=== PATIENT | male | born 1955 | race Caucasian/White ===

== ENCOUNTER 2017-03-16 16:39 | Emergency (ER) | payer BC ==
[~2017-03-16] VITALS: Ht 182.9 cm; Wt 100.1 kg
[~2017-03-16 16:39] MED LIST: CRF1 PO; GLC/500 PO; MULT-506 PO; PANT40TA PO
[2017-03-16 16:42] VITALS: Ht 182.9 cm; Wt 100.1 kg
[2017-03-16] MEDS ORDERED: METHYLPREDNISOLONE 125 MG VIAL IV STA (17:34)
--- NOTE | 2017-03-16 17:35 | EMERGENCY ROOM VISIT NOTE ---
History Report prepared by Phillip: Joie Daily Under the Supervision of: Dr. Sae King M.D. First contact with patient: 17:25 Chief Complaint: CHEST PAIN Stated Complaint: DIFFICULTY BREATHING,CHEST PRESSURE Nursing Triage Summary: Patient with chest heaviness since yesterday and also unable to lay down without being SOB. Denies cough. History of ablation. History of Present Illness The patient is a 61 year old male who presents to the Emergency Room with complaints of worsening shortness of breath beginning yesterday. The patient states that he is having trouble breathing and is wheezing. He is also experiencing chest pressure. The patient is fatigued from his symptoms. He notes that laying down worsens his symptoms. The patient denies leg swelling, recent traveling, history of COPD or asthma, exposure to illness, cough, or being a smoker. He notes that he has one functioning lung and a history of ablation at [place] last year for atrial flutter. The patient use to be on Pradaxa but has not taken it recently. Source of History: patient Onset: yesterday Position: other (global) Quality: other (shortness of breath) Timing: worsening Associated Symptoms: + chest pain (pressure), + fatigue Note: The patient is experiencing trouble breathing. Review of Systems See HPI for pertinent positives & negatives. A total of 10 systems reviewed and were otherwise negative. Past Medical & Surgical Medical Problems: (1) Chronic low back pain Family History Patient reports no known family medical history. Social History Smoking Status: Never Smoker Smokeless Tobacco Use: No Marital Status: Housing Status: lives with family Occupation Status: employed Current/Historical Medications Scheduled Azithromycin (Zithromax Z-Raymond), 1 PKT PO UD Glipizide (Glipizide Er), 1 TAB PO DAILY Metformin Hcl (Glucophage), 500 MG PO BID Methylprednisolone (Medrol Dosepak), 1 PKT PO UD Metoprolol Tartrate (Lopressor) (Lopressor), 50 MG PO BID Scheduled PRN Lisinopril (Lisinopril), 2.5 MG PO for daily Allergies Coded Allergies: Iodinated Contrast Media (Verified Adverse Reaction, Mild, GI SYMPTOMS FROM BONE SCAN DYE, 03/16/17) Physical Exam Vital Signs Date Time Temp Pulse Resp B/P Pulse Ox O2 Delivery O2 Flow Rate FiO2 03/16/17 20:06 36.7 92 17 /78 93 5/19/17 19:50 92 17 118/78 93 03/16/17 19:20 84 15 94 03/16/17 18:23 70 03/16/17 18:17 65 16 124/77 99 Nebulizer 03/16/17 18:17 99 03/16/17 17:48 67 16 96 Room Air 03/16/17 16:44 Room Air 03/16/17 16:42 36.7 67 20 123/82 95 Room Air Physical Exam GENERAL: Patient is uncomfortable appearing and in moderate distress. HEENT: No acute trauma, normocephalic atraumatic, mucous membranes moist, no nasal congestion, no scleral icterus. NECK: No stridor, no adenopathy, no meningismus, trachea is midline. LUNGS: Dysemic and tachypneic. Tight lung sounds throughout with diffuse inspiratory and expiratory wheezing. Lung sounds decrease laterally on left side. HEART: Regular rate and rhythm. No murmurs, rubs, gallops appreciated. ABDOMEN: Soft, nontender, bowel sounds positive, no masses appreciated, no peritonitis. BACK: No midline tenderness, no CVA tenderness EXTREMITIES: Normal motion all extremities, no cyanosis, no edema. NEUROLOGIC: Alert and oriented, no acute motor or sensory deficits, no focal weakness, cranial nerves grossly intact. SKIN: No rash, no jaundice, no diaphoresis. Medical Decision & Procedures ER Provider Diagnostic Interpretation: X ray results are stated below per my interpretation and the radiologist's interpretation. CHEST ONE VIEW PORTABLE HISTORY: Atypical Chest Pain COMPARISON: None. FINDINGS: The lungs are clear. Cardiac silhouette is normal in size. No pleural effusions. No pneumothorax. Chronic elevation of the left hemidiaphragm. IMPRESSION: No acute process. Stable chronic elevation of the left hemidiaphragm. Electronically signed by: Ye Tovar M.D. 03/16/2017 6:03 PM Dictated Date/Time: 03/16/2017 6:02 PM Laboratory Results 03/16/17 17:49 Red Blood Count 4.73, Mean Corpuscular Volume 92.0, Mean Corpuscular Hemoglobin 31.9, Mean Corpuscular Hemoglobin Concent 34.7, Mean Platelet Volume 11.8, Neutrophils (%) (Auto) 42.7, Lymphocytes (%) (Auto) 37.2, Monocytes (%) (Auto) 12.6, Eosinophils (%) (Auto) 7.0, Basophils (%) (Auto) 0.3, Neutrophils # (Auto ) 2.50, Lymphocytes # (Auto) 2.18, Monocytes # (Auto) 0.74, Eosinophils # (Auto ) 0.41, Basophils # (Auto) 0.02 03/16/17 17:49 Test 03/16/17 17:49 03/16/17 18:07 03/16/17 18:08 White Blood Count 5.86 K/uL (4.8-10.8) Red Blood Count 4.73 M/uL (4.7-6.1) Hemoglobin 15.1 g/dL (14.0-18.0) Hematocrit 43.5 % (42-52) Mean Corpuscular Volume 92.0 fL (80-100) Mean Corpuscular Hemoglobin 31.9 pg (25-34) Mean Corpuscular Hemoglobin Concent 34.7 g/dl (32-36) Platelet Count 153 K/uL (130-400) Mean Platelet Volume 11.8 fL (7.4-10.4) Neutrophils (%) (Auto) 42.7 % Lymphocytes (%) (Auto) 37.2 % Monocytes (%) (Auto) 12.6 % Eosinophils (%) (Auto) 7.0 % Basophils (%) (Auto) 0.3 % Neutrophils # (Auto) 2.50 K/uL (1.4-6.5) Lymphocytes # (Auto) 2.18 K/uL (1.2-3.4) Monocytes # (Auto) 0.74 K/uL (0.11-0.59) Eosinophils # (Auto) 0.41 K/uL (0-0.5) Basophils # (Auto) 0.02 K/uL (0-0.2) RDW Standard Deviation 42.9 fL (36.4-46.3) RDW Coefficient of Variation 12.8 % (11.5-14.5) Immature Granulocyte % (Auto) 0.2 % Immature Granulocyte # (Auto) 0.01 K/uL (0.00-0.02) D-Dimer 240 ug/L FEU (0-500) Anion Gap 6.0 mmol/L (3-11) Est Creatinine Clear Calc Drug Dose 123.3 ml/min Estimated GFR () 113.9 Estimated GFR (Non- 98.3 BUN/Creatinine Ratio 25.7 (10-20) Calcium Level 9.5 mg/dl (8.5-10.1) Total Creatine Kinase 90 U/L (39-308) Creatine Kinase MB 2.4 ng/ml (0.5-3.6) Creatine Kinase MB Ratio 2.7 (0-3.0) Troponin I < 0.015 ng/ml (0-0.045) Venous Blood pH 7.44 (7.36-7.41) Venous Blood Partial Pressure CO2 38 mmHg (38.0-50.0) Venous Blood Partial Pressure O2 46 mmHg Venous Blood HCO3 25 mmol/L Venous Blood Oxygen Saturation 81.6 % Venous Blood Base Excess 1.2 mmol/L Bedside Lactic Acid Venous 0.88 mmol/L (0.90-1.70) Laboratory results as reviewed by me. Medications Administered Medications (Trade) Dose Ordered Sig/Gayatri Route Start Time Stop Time Status Last Admin Dose Admin Albuterol/ Ipratropium (Duoneb) 12 ml ONE ONCE INH 03/16/17 17:45 03/16/17 17:46 DC 03/16/17 17:45 12 ML Methylprednisolone Sodium Succinate (Solu-Medrol IV) 125 mg NOW STAT IV 03/16/17 17:34 03/16/17 17:36 DC 03/16/17 18:13 125 MG Azithromycin (Zithromax Tab) 500 mg NOW STAT PO 03/16/17 19:31 03/16/17 19:33 DC 03/16/17 20:00 500 MG Albuterol (Ventolin Hfa Inhaler) 2 puffs NOW STAT INH 03/16/17 19:31 03/16/17 19:33 DC 03/16/17 20:00 2 PUFFS ECG Indication: SOB/dyspnea Rate (beats per minute): 66 Rhythm: normal sinus Findings: no ectopy Change: T waves have flatten although most likely secondary to lead placement. ED Course 1729: The patient was evaluated in room C5. A complete history and physical exam was performed. 1733: Solu-Medrol IV 125 mg IV, Duoneb 12 ml INH. 1913: I reevaluated the patient. He is feeling better and his lungs are clear. Stats 100% on room air. 1930: The patient feels good and is comfortable going home. 1930: Ventolin Hfa Inhaler 2 puffs INH, Zithromax Tab 500 mg PO. 1934: Reevaluated the patient. Discussed results and discharge instructions: He verbalized understanding and agreement. The patient is ready for discharge. Medical Decision Differential: Infectious, Reactive Airway Disease, Pneumonia, Pneumothorax, COPD , CHF, ACS, Pulmonary Embolism, MSK, GI, Dissection, amongst other etiologies entertained. 30 yr old male arrives with complaint of shortness of breath and tightness of chest since yesterday while mowing lawn. No significant asthma history though did have case of bronchitis a few years ago. He has very tight lung sounds with diffuse wheezing. Vastly improved lungs with hour long neb. IV steroids given. No clear evidence of pneumonia and labs without evidence sepsis. Dimer normal and no history PE thus I feel CT PE not indicated. Stable and breathing comfortably in no distress. Suspect this is acute reactive airway to environmental but given initial severity I feel bringing on abx in this case is perfectly reasonable. No evidence of acs, dissection. Aware RTED if worsening and the need for follow up with PCP. Impression Primary Impression: Reactive airway disease with acute exacerbation Scribe Attestation The scribe's documentation has been prepared under my direction and personally reviewed by me in its entirety. I confirm that the note above accurately reflects all work, treatment, procedures, and medical decision making performed by me. Departure Information Dispostion Home / Self-Care Prescriptions Methylprednisolone (MEDROL DOSEPAK) 4 Mg Raymond 1 PKT PO UD for 6 Days, #1 PKT Prov: Sae King M.D. 03/16/17 Azithromycin (ZITHROMAX Z-RAYMOND) 250 Mg Tab 1 PKT PO UD, #1 PKT Prov: Sae King M.D. 03/16/17 Referrals Chuy Figueroa, D.O. (PCP) Forms HOME CARE DOCUMENTATION FORM, IMPORTANT VISIT INFORMATION Patient Instructions Bronchitis Acute, My [facility]
[2017-03-16] MEDS ORDERED: ALBUT/IPRATROP 3MG/0.5MG NEB 3 ML VIAL INH ONE (17:45)
[2017-03-16 17:48] VITALS: PULSE 67; O2SAT 96
--- NOTE | 2017-03-16 18:05 | DIAGNOSTIC IMAGING REPORT ---
CHEST ONE VIEW PORTABLE HISTORY: Atypical Chest Pain COMPARISON: None. FINDINGS: The lungs are clear. Cardiac silhouette is normal in size. No pleural effusions. No pneumothorax. Chronic elevation of the left hemidiaphragm. IMPRESSION: No acute process. Stable chronic elevation of the left hemidiaphragm. Electronically signed by: Ye Tovar M.D. 03/16/2017 6:03 PM Dictated Date/Time: 03/16/2017 6:02 PM
[2017-03-16 18:15] LABS: BASO % 0.3 %; BASO ABS # 0.02 K/uL (0-0.2); COMPLETE YES; HEMATOCRIT 43.5 % (42-52); IG% 0.2 %; LYMPH % 37.2 %; LYMPH ABS # 2.18 K/uL (1.2-3.4); MEAN CORPUSCULAR HEMOGLOBIN 31.9 pg (25-34); MEAN CORPUSCULAR HGB CONC 34.7 g/dl (32-36); MEAN PLATELET VOLUME 11.8 fL (7.4-10.4); MONO % 12.6 %; NEUT % 42.7 %; PLATELET COUNT 153 K/uL (130-400); RED BLOOD COUNT 4.73 M/uL (4.7-6.1); WHITE BLOOD COUNT 5.86 K/uL (4.8-10.8)
[2017-03-16 18:17] VITALS: O2SAT 99
[2017-03-16 18:19] LABS: VEN BLD GAS O2 SATURATION 81.6 %; VEN BLOOD GAS BASE EXCESS 1.2 mmol/L
[2017-03-16] MEDS ORDERED: LISI2.5T5 PO (18:34)
[2017-03-16] MEDS ORDERED: GLIP-197 PO (18:34)
[2017-03-16] MEDS ORDERED: METO50TA16 PO (18:34)
[2017-03-16 18:45] LABS: BLOOD UREA NITROGEN 20 mg/dl (7-18); BUN/CREATININE RATIO 25.7 (10-20); CARBON DIOXIDE 29 mmol/L (21-32); CHLORIDE 103 mmol/L (98-107); CREATININE 0.79 mg/dl (0.60-1.40); GLUCOSE 99 mg/dl (70-99); POTASSIUM 4.2 mmol/L (3.5-5.1); SODIUM 138 mmol/L (136-145)
[2017-03-16 18:49] LABS: CKMB/CK RATIO 2.7 (0-3.0)
[2017-03-16] MEDS ORDERED: ALBUTEROL HFA 8 GM INHALER INH STA (19:31)
[2017-03-16] MEDS ORDERED: AZITHROMYCIN 250 MG TAB PO STA (19:31)
[2017-03-16] MEDS ORDERED: METH4PAK PO (19:33)
[2017-03-16] MEDS ORDERED: AZITTAB PO (19:33)
[2017-03-16 19:50] VITALS: BP_SYST 118
[2017-03-16 20:06] VITALS: BP_DIAS 78; PULSE 92; TEMP 36.7; O2SAT 93
[2017-03-16 20:43] LABS: CALCIUM 9.5 mg/dl (8.5-10.1)
== END 2017-03-16 20:07 | disposition home or self-care (01) ==
LOC: C.EDB 16:40 → C.EDC 20:07
DX: J45.901 Unspecified asthma with (acute) exacerbation (principal)

== ENCOUNTER → 2017-11-13 | Outpatient (CLI) | payer OTHER ==
[~2017-11-13] MED LIST changes: -CRF1 PO; +GLIP-197 PO; +LISI2.5T5 PO; +METO50TA16 PO; -MULT-506 PO; -PANT40TA PO
[2017-11-13 09:58] LABS: ALBUMIN 3.9 gm/dl (3.4-5.0); ALT/SGPT 32 U/L (12-78); AST/SGOT 19 U/L (15-37); BLOOD UREA NITROGEN 15 mg/dl (7-18); CARBON DIOXIDE 32 mmol/L (21-32); CREATININE 0.87 mg/dl (0.60-1.40); GLUCOSE 175 mg/dl (70-99); POTASSIUM 4.3 mmol/L (3.5-5.1); SODIUM 134 mmol/L (136-145)
[2017-11-13 10:01] LABS: ALKALINE PHOSPHATASE 81 U/L (45-117); CHOLESTEROL 207 mg/dl (0-200); TOTAL PROTEIN 7.5 gm/dl (6.4-8.2)
[2017-11-13 10:05] LABS: CREATININE RANDOM URINE 53.1 mg/dl
[2017-11-13 10:09] LABS: HEMOGLOBIN A1C 7.6 % (4.5-5.6)
[2017-11-13 10:11] LABS: LDL CHOLESTEROL (DIRECT) 116 mg/dl
== END | disposition home or self-care (01) ==
LOC: C.LAB 08:42
PROVIDERS: ATTEND Family Medicine
DX: E11.9 Type 2 diabetes mellitus without complications (principal)

== ENCOUNTER 2019-04-11 12:11 | Inpatient (IN) ==
--- OUTSIDE RECORDS SUMMARY | 2019-04-11 12:14 | External Medical Summary | Continuity of Care Document ---
:1955 Author Name Alysia Buenrostro, Provider Address Unavailable Unavailable , Care Team Providers Name Role Phone Dudley Buenrostro, [email or web address] Latoya Buenrostro, [email or web address] Unavailable Unavailable Unavailable Unavailable Unavailable Problems Disc degeneration, lumbar (722.52) (M51.36) Osteoarthritis, hand (715.94) (M19.049) Joint pain, knee (719.46) (M25.569) Degeneration of cervical intervertebral disc (722.4) (M50.30 ) Ankle joint pain (719.47) (M25.579) Foot pain (729.5) (M79.673) Polyarthropathy or polyarthritis of multiple sites (716.59) (M13.0) Plantar fasciitis (728.71) (M72.2) Hand pain, right (729.5) (M79.641) 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) Rectal bleeding (569.3) (K62.5) Arthralgia of multiple sites (719.49) (M25.50) Diabetes mellitus (250.00) (E11.9) 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 Porter Buckner Start: 10-Jun-2014 Quantity: 30 Refills: 5 oxyCODONE HCl - 5 MG Oral Tablet; TAKE 1 TABLET EVERY 6 HOURS NEEDED FOR BREAKTHROUGH PAIN. Porter Buckner Start: 27-Jul-2014 Quantity: 30 Refills: 0 Proctocort 30 MG Rectal Suppository; INS ERT 1 SUPPOSITORY RECTALLY 2 TIMES DAILY. Porter Buckner Start: 01-Oct-2014 Quantity: 14 Refills: 0 Viagra 100 MG Oral Tablet; Take 1/4table t 1/2 hour before sex. May increase to 1/2 tablet if needed Porter Cooney Start: 11-Dec-2012 Quantity: 3 Refills: 5 Shara Contour Test STRP; BLOOD SUGAR TWICE DAILY Porter Cooney Start: 05-Aug-2013 Quantity: 60 Refills: 11 LORazepam 1 MG Oral Tablet; TAKE 1 TABLET BY MOUTH WARREN LY AT BEDTIME NEEDED. Porter Cooney Start: 05-Aug-2013 Quantity: 30 Refills: 5 Procedures Procedures not documented Immunizations Meningo (Menactra) On: 10-May-2007 Hepatitis A On: 10-May-2007 DTaP On: 10-May-2007 PPD On: 15-May-2016 16:40 Lot #: [id number], SANOFI PASTEUR Tubersol 5 UNIT/0.1ML Intradermal Solution On: 08-Oct-2017 1 0:15 Lot #: [id number], SANOFI PASTEUR Social History - Smoking Status Former smoker Former smoker Plan of Treatment Planned Observations Planned Goals not documented Results No Known Results Results not documented Encounters Appointment; Nurse Mikayla 08-Oct-2017 9:45 Encounter Diagnosis: Problem not documented Appointment; Nurse Mikayla 10-Oct-2017 10:00 Encounter Diagnosis: Problem not documented
[2019-04-11] MEDS ORDERED: dilTIAZem HCl 5 MG/ML 5 ML VIAL IV STA (12:35)
[2019-04-11] MEDS ORDERED: dilTIAZem HCl 125 MG in DEXTROSE 5% 100 ML IV SCH ×2 (12:45→15:52)
--- NOTE | 2019-04-11 12:48 | XRay Report ---
XR chest 1V portable HISTORY: 63 years-old Male rapid afib, left chest pain acute left-sided chest pain COMPARISON: Chest radiograph 03/16/2017 TECHNIQUE: Portable AP view the chest FINDINGS: Cardiomediastinal and hilar silhouettes are unchanged. Chronic left hemidiaphragmatic elevation. No p neumothorax, pleural effusion, focal airspace consolidation or overt pulmonary edema. Degenerative ch anges of the shoulders and spine. IMPRESSION: 1. No acute process. 2. Chronic left hemidiaphragmatic elevation. The above report was generated using voice recognition software. It may contain grammatical, syntax o r spelling errors. Electronically signed by: Justo Shankar M.D. 04/11/2019 12:47 PM
[2019-04-11 12:55] LABS: Basophils # (auto) 0.02 K/uL (0-0.2); Basophils % (auto) 0.5 %; Eosinophils # (auto) 0.17 K/uL (0-0.5); Hematocrit (blood only) 44.3 % (42-52); Hemoglobin 15.1 g/dL (14.0-18.0); Immature Granulocytes # (auto) 0.01 K/uL (0.00-0.02); Immature Granulocytes % (auto) 0.2 %; Lymphocytes # (auto) 1.53 K/uL (1.2-3.4); Lymphocytes % (auto) 35.7 %; Mean Corpuscular Hgb Conc 34.1 g/dL (32-36); Mean Corpuscular Volume 91.9 fL (80-100); Mean Platelet Volume 11.6 fL (7.4-10.4); Monocytes # (auto) 0.62 K/uL (0.11-0.59); Monocytes % (auto) 14.5 %; Neutrophils # (auto) 1.93 K/uL (1.4-6.5); Neutrophils % (auto) 45.1 %; Platelet Count 128 K/uL (130-400); RDW Coefficient of Variation 12.3 % (11.5-14.5); RDW Standard Deviation 41.6 fL (36.4-46.3); Red Blood Count 4.82 M/uL (4.7-6.1); White Blood Count 4.28 K/uL (4.8-10.8)
[2019-04-11] MEDS ORDERED: Heparin BOLUS **ED Use Only IV STA (12:55)
[2019-04-11 12:56] LABS: Appearance Urine Clear (Clear); Bilirubin Urine Negative (Negative); Blood Urine Negative (Negative); Color Urine Yellow; Glucose Urine UA 3+ (Negative); Ketones Urine Negative (Negative); Leukocyte Esterase Urine Negative (Negative); Nitrite Urine Negative (Negative); Protein Urine Negative (Negative); Specific Gravity Urine 1.023 (1.000-1.030); Urobilinogen Urine Negative (Negative)
[2019-04-11] MEDS ORDERED: HEPARIN SODIUM/DEXTROSE 25,000 UNITS/500 ML BAG IV SCH (13:00)
[2019-04-11 13:09] LABS: Partial Thromboplastin Ratio 0.9; Partial Thromboplastin Time 23.9 Seconds (21.0-31.0); Prothrombin Time 10.4 Seconds (9.0-12.0)
[2019-04-11 13:17] LABS: Alanine Aminotransferase 40 U/L (12-78); Aspartate Aminotransferase 19 U/L (15-37); BUN Creatinine Ratio 16.8 (10-20); Blood Urea Nitrogen 16 mg/dl (7-18); Calcium 8.9 mg/dl (8.5-10.1); Carbon Dioxide 30 mmol/L (21-32); Chloride 105 mmol/L (98-107); Creatinine Clr Calc Pharmacy 104.1 ml/min; Est GFR (Non-African American) 87.2; Glucose 158 mg/dl (70-99); Magnesium 2.4 mg/dl (1.8-2.4); Potassium 3.9 mmol/L (3.5-5.1); Sodium 140 mmol/L (136-145)
[2019-04-11 13:28] LABS: Albumin Globulin Ratio 1.1 (0.9-2); Alkaline Phosphatase 74 U/L (45-117); Bilirubin,Total 0.4 mg/dl (0.2-1); Globulin 3.6 gm/dl (2.5-4.0); Total Protein 7.6 gm/dl (6.4-8.2); Troponin I < 0.015 ng/ml (0-0.045)
[2019-04-11 13:31] LABS: Platelet Estimate Decreased (Normal)
[2019-04-11 14:06] LABS: Lyme Ab IgG w/WB Rflx Negative (Negative); Lyme Ab IgM w/WB Rflx Negative (Negative)
--- NOTE | 2019-04-11 14:46 | History & Physical Report ---
Date of Service April 11, 2019 Assessment & Plan (1) Atrial fibrillation with RVR: (2) Left-sided chest pain: This is a 63-year-old male who has a significant past medical history of a Aflutter s/p caval tricuspid isthmus ablation with bidirectional block by Dr. Stewart 05/23/16, T2DM, HTN HLD, Osteoarthritis on chronic narcotics who presents to [facility] ED secondary to heart racing off and on x 1 week. In ED ECG revealed A. fib with RVR CBC revealed H/H 15.1/44.3, PLT 128, Na 40, K 3.9, Bun 16, Cr 0.94 Troponin, TSH, Lyme and BNP unremarkable CXR chronic L hemidiaphragmatic elevation otherwise no acute abnormality Started on IV Diltiazem and heparin gtt CHADSVASC 2 (HTN, T2DM) admit to PCU Continue Diltiazem gtt and heparin gtt per protocol consult cardiology trend troponin q6 hr - next at 1800 echocardiogram ordered and obtained (3) T2DM (type 2 diabetes mellitus): A1C 7.8 02/2019 hold outpatient metformin and glipizide Lantus/NovoLog per protocol (4) HTN (hypertension): blood pressure controlled on lower side continue lisinopril and metoprolol with parameters (5) HLD (hyperlipidemia): continue statin (6) Osteoarthritis: oxycodone as needed - takes 1-2x daily Pt with chronic substance agreement with PCP (7) DVT prophylaxis: SCDS/IV Heparin Dispositin: D/C to home when able Follow up: PCP Dr. Figueroa along with appropriate Cardiology follow up Patient was seen and examined in collaboration with Dr. Walker, please see addendum History of Present Illness Chief Complaint: Heart racing off and on x 1 week. Primary Care Provider: Chyu Figueroa DO This is a 63-year-old male who has a significant past medical history of a Aflutter s/p caval tricuspid isthmus ablation with bidirectional block by Dr. Stewart 05/23/16, T2DM, HTN HLD, Osteoarthritis on chronic narcotics who presents to [facility] ED secondary to heart racing off and on x 1 week. Pt states since his ablation back in 2015 he noticed intermittent symptoms about once per month. Sx including dizziness, off balance, MIRANDA, SOB at rest, L sided chest discomfort, blurry vision, lasting minutes to hours. Over the past 6 months has been noticing increased episodes, more specifically the past week has noticed several episodes while traveling. Sx have been persistent since getting off the plane yesterday. He attributed it to traveling. At PCP office today for 's appointment mentioned he felt his heart racing. They took an ECG which noted Afib with RVR so recommended he seek ED immediately. Currently he feels, "like a pin cushion." Complains of L sided chest pressure, dull, non radiating, 2/10, nothing makes better/worse with associated sob at rest, miranda, 2 pillow orthopnea, PND, increased lower ext swelling which improves in a.m. He has not taken any medications today given his pills are in his luggage which is did not travel with him. He denies any syncope, current dizziness, lightheaded, n/v/d, change in bowel or urinary habits. Appetite and weight are unchanged. No recent illness. Unfortunately has not followed up with cardiology since 05/2016. Allergies Allergy/AdvReac Type Severity Reaction Status Date / Time NSAIDS (Non-Steroidal AdvReac Severe GIB Verified 04/11/19 14:45 Anti-Inflamma Iodinated Contrast- Oral and AdvReac Mild GI Verified 04/11/19 13:46 IV Dye SYMPTOMS FROM BONE SCAN DYE Home Medications Home Medications Medication Instructions Recorded Confirmed Type acetaminophen [Tylenol] 325 mg PO UD PRN 04/11/19 04/11/19 History aspirin [Aspirin Low Dose] 81 mg PO QAM 04/11/19 04/11/19 History atorvastatin 40 mg PO QAM 04/11/19 04/11/19 History glipizide 10 mg PO QAM 04/11/19 04/11/19 History hydroxyzine pamoate 25 mg PO UD PRN 04/11/19 04/11/19 History lisinopril 2.5 mg PO QAM 04/11/19 04/11/19 History lorazepam 1 mg PO UD PRN 04/11/19 04/11/19 History metformin 750 mg PO BID 04/11/19 04/11/19 History metoprolol tartrate 50 mg PO BID 04/11/19 04/11/19 History oxycodone 5 mg PO BID PRN 04/11/19 04/11/19 History Past Med/Surg History Medical History History of fractured rib (Chronic) multiple L sided HLD (hyperlipidemia) (Chronic) HTN (hypertension) (Chronic) Osteoarthritis (Chronic) CMC arthritis (Chronic) T2DM (type 2 diabetes mellitus) (Chronic) Surgical History History of surgery on upper extremity (Chronic) L arm secondary to work accident - plates to L forearm History of cardiac radiofrequency ablation (Chronic) caval tricuspid isthmus ablation with bidirectional block by Dr. Stewart 05/23/16 Family History Mother Lung cancer Father Aneurysm Brother Arrhythmia Social History Preferred Language: Bulgarian Communication Ability: Effective Atv Mechanic Required: No Beliefs That Will Affect Care: None marital status: Current Living Situation: Spouse and Family Other Information That Helps Us Care for You: No Feels Safe at Home: Yes Safety Concerns: Feels Safe At This Time Smoking Status: Former smoker Years Smoked: 15 Cigarettes Per Day: 1ppd Do You Dip or Chew Tobacco: No Number of Years Since Quit: 35 Second Hand Exposure: No Tobacco Cessation Education Requested by Patient: No Hx Alcohol Use: Yes Alcohol type: wine Hx Substance Use: Yes substance use type: does not use and prescription drug Substance Use Type Other:: chronic percocet for arthritis Review of Systems Review of Systems: As noted per HPI, 10 systems reviewed and negative unless noted above. Physical Exam Physical Exam: Gen: WD/WN, M, NAD, sitting up in bed, pleasant, conversing easily Head: Normocephalic, Atraumatic Eyes: Sclera normal, no conjunctival injection, PERRLA, EOMI ENT: Gross hearing intact, normal pharynx, mucous membranes moist Neck: supple, no adenopathy, No JVD, no bruit, Resp: Clear to auscultation b/l with significantly diminished breath sounds LLL from previous trauma, no wheeze, rales, rhonchi. 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 Extremities: trace to +1 pedal and pretibial edema bilaterally Skin: warm, moist, no rash, negative turgor, cap refill < 2sec Neuro: Alert and oriented x 3, speech normal, good mood/affect, cran nerve 2-12 intact grossly : deferred Results & Data Vital Signs (Past 12 Hours) Vital Signs Temp Pulse Pulse Resp BP Pulse Ox 04/11/19 14:14 133 H 24 95 04/11/19 14:02 164 H 20 108/71 04/11/19 13:39 154 H 18 04/11/19 13:30 135 H 18 109/88 94 04/11/19 13:18 147 H 95 04/11/19 13:02 157 H 15 96 04/11/19 13:01 157 H 21 117/79 95 04/11/19 12:54 96 04/11/19 12:33 156 H 18 136/119 H 97 04/11/19 12:19 36.7 C 88 18 120/77 96 Laboratory Results Short CBC 04/11/19 Range/Units 12:37 WBC 4.28 L (4.8-10.8) K/uL Hgb 15.1 (14.0-18.0) g/dL Hct 44.3 (42-52) % Plt Count 128 L (130-400) K/uL Platelet Estimate Decreased L (Normal) BMP 04/11/19 12:37 Sodium 140 Potassium 3.9 Chloride 105 Carbon Dioxide 30 BUN 16 Creatinine 0.94 Glucose 158 H Calcium 8.9 Cardiac Enzymes 04/11/19 Range/Units 12:37 Troponin I < 0.015 (0-0.045) ng/ml Liver Function 04/11/19 Range/Units 12:37 Total Bilirubin 0.4 (0.2-1) mg/dl AST 19 (15-37) U/L ALT 40 (12-78) U/L Alkaline Phosphatase 74 (45-117) U/L Albumin 4.0 (3.4-5.0) gm/dl Urine 04/11/19 Range/Units 12:45 Urine Color Yellow Urine Appearance Clear (Clear) Urine pH 5.0 (4.5-7.5) Ur Specific [place] 1.023 (1.000-1.030) Urine Protein Negative (Negative) Urine Glucose (UA) 3+ H (Negative) Diagnostic Findings CXR: IMPRESSION: 1. No acute process. 2. Chronic left hemidiaphragmatic elevation. Medications Administered Diltiazem HCl 125 mg/ Dextrose 125 mls @ 5 mls/hr IV .Q24H [facility]; Protocol Stop: 05/11/19 12:44 Last Titration: 04/11/19 14:15 Dose: 15 mg/hr, 15 mls/hr Documented by: [id number] Titration: 04/11/19 13:41 Dose: 10 mg/hr, 10 mls/hr Documented by: [id number] Admin: 04/11/19 13:14 Dose: 5 mg/hr, 5 mls/hr Documented by: [id number] Cosigned by: [id number] Heparin Sodium/Dextrose (Heparin Sodium/Dextrose) 25,000 units in 500 mls @ 32 mls/hr IV .[id number] [facility]; Protocol Stop: 05/11/19 12:59 Last Admin: 04/11/19 13:07 Dose: 1,600 units/hr, 32 mls/hr Documented by: [id number] Cosigned by: [id number] Discontinued Medications Diltiazem HCl (Cardizem) 10 mg IV NOW STA Stop: 04/11/19 12:36 Last Admin: 04/11/19 13:01 Dose: 10 mg Documented by: [id number] Cosigned by: [id number] Heparin Sodium (Porcine) (Heparin Iv Bolus) 7,000 units IV NOW STA Stop: 04/11/19 12:56 Last Admin: 04/11/19 13:06 Dose: 7,000 units Documented by: [id number] Cosigned by: [id number] Heparin Sodium/Dextrose () 1 ea N/A NOW STA; Protocol Stop: 04/11/19 12:36 Last Admin: 04/11/19 13:14 Dose: Not Given Documented by: [id number] ECG Rate (beats per minute): 148 Rhythm: atrial fibrillation Code Status & VTE Plan Code Status Full Code VTE Prophylaxis Plan VTE Prophylaxis will be ordered: Yes Supervising Physician Co-Signing Physician Notes I have seen the patient with physician collections assistant and agree with the assessment and plan as above and would like to add that Patient's main medical issues is atrial fibrillation with rapid ventricular response. In the ED, patient started on cardiazem drip and heparin drip and there is some improvements in rate control but heart rate and rhythm continues to be fast and irregular. will appreciate cardiology service on interpreting the echocardiogram results and their recommendations on further rate control strategies. Patient is known to have cardiac ablation in the past. However, has not been following cardiology service since ablation despite intermittent symptoms of lightheadedness and palpitations. of note, patient has not been on diuretics at home and there are bilateral lower extremity on exam. once heart rate is better control, will consider diuretics. however BNP is normal and CXR is clear On my exam General: no acute distress Heart: tachycardia and irregular Lungs: clear to auscultation bilaterally abdomen: soft, nontender, bowel sounds present legs: bilateral edema agree with assessment and plan for other medical issues as described
--- NOTE | 2019-04-11 14:51 | Emergency Department Note ---
Entered by Sandi Taveras acting as a scribe for Gabino Humphreys MD ED Provider Note CHIEF COMPLAINT: Chest pain HISTORY OF PRESENT ILLNESS: The patient is a 63 year old male who presents to the Emergency Room with complaints of an episode of chest pain that began prior to arrival. The patient reports that his was being evaluated at [facility] when he suddenly had an episode of chest pain. He states that he was also experiencing palpitations and dizziness, as he has the past few days, so they obtained an EKG and monitored his blood pressures. He notes that he was then referred to the ER for an MT rule-out. He explains that he has a history of a-fib and had an ablation about 3 years ago. He reports that his chest pain was radiating to his left arm. He also states that he recently returned from vacation, where he did have a few long plane rides. He denies being on any blood thinners secondary to their side effects. He also notes that he is currently on Metoprolol but that he did not take it today. He also reports that for about a month, he has had an intermittent sharp pain near his right rib cage. He explains that these have been more frequent with time. He also states that he has had an acute leg swelling. The patient denies LOC, headache, neck pain, abdominal pain, back pain, melena, hematochezia, urinary symptoms, diarrhea, or other complaints. REVIEW OF SYSTEMS: See HPI for pertinent positives and negatives. A total of ten systems were reviewed and were otherwise negative. PMHx/PSHx: A-fib with ablation HTN SOCIAL HISTORY: Patient lives at home with . Former smoker PHYSICAL EXAM: GENERAL: Awake, alert, well-appearing, in no distress HENT: Normocephalic, atraumatic. Oropharynx unremarkable. EYES: PERRL. Normal conjunctiva. Sclera non-icteric. NECK: Inspection normal. Non-tender. Supple. No nuchal rigidity. FROM. No masses. RESPIRATORY: Clear to auscultation. No wheezes. No rales. Normal respiratory effort. CARDIAC: Tachycardic and irregular. No murmurs. No rubs. Extremities warm and well perfused. Pulses equal. No JVD. GI: Soft, non-distended. No tenderness to palpation. No rebound or guarding. No masses. RECTAL: Deferred. MUSCULOSKELETAL: Atraumatic. Chest examination reveals no tenderness. The back is symmetrical on inspection without obvious abnormality. There is no CVA t enderness to palpation. No joint edema. LOWER EXTREMITIES: Calves are equal size bilaterally and non-tender. 1+ edema. No discoloration. NEURO: Normal sensorium. No sensory or motor deficits noted. SKIN: No rash or jaundice noted. EMERGENCY DEPARTMENT COURSE: 1229: The patient was evaluated in room B9, and a complete history and physical examination were performed. Clinic EKG reviewed and showed: a-fib with RVR at 163 bpm, no PVCs or ST elevations. 1335: I discussed the patients case with Isabel Orta PA-C. She, in conjunction with Dr. Walker, will evaluate the patient for further management. MEDICAL DECISION MAKING: Triage Nursing notes reviewed and agree them. Additional history obtained from the family. The patient's history was concerning for palpitations and chest pain. Differential diagnosis: Etiologies such as electrolyte abnormality, cardiac dysrhythmia, thyroid dysfunction, pulmonary embolism, infection, gastrointestinal, ACS, as well as others were entertained. Physical examination: As above. The patient was in rapid atrial fibrillation. ER treatment provided: Cardiac monitoring. IV Cardizem bolus and drip IV heparin On reassessment the patient felt better. Diagnostic interpretation by me: The electrocardiogram was consistent with rapid atrial fibrillation. The labs revealed an unremarkable CBC and chemistry panel. Troponin negative. Coags normal. Imaging studies: Chest x-ray negative for acute disease. Consultation: A consultation was placed with the hospitalist. The case was discussed and diagnostics were reviewed. The patient was evaluated in the ER for further treatment. IMPRESSION: A-fib with RVR, left-sided chest pain PLAN: Being evaluated by hospitalist The scribe's documentation has been prepared under my direction and personally reviewed by me in its entirety. I confirm that the note above accurately reflects all work, treatment, procedures, and medical decision making performed by me. Impression & Plan Atrial fibrillation with RVR, Left-sided chest pain Past Med/Surg History Medical History HLD (hyperlipidemia) (Chronic) HTN (hypertension) (Chronic) Osteoarthritis (Chronic) CMC arthritis (Chronic) T2DM (type 2 diabetes mellitus) (Chronic) Surgical History History of cardiac radiofrequency ablation (Chronic) caval tricuspid isthmus ablation with bidirectional block by Dr. Stewart 05/23/16 Social History Preferred Language: Vietnamese Communication Ability: Effective Medical Health Researcher Required: No Beliefs That Will Affect Care: None marital status: Current Living Situation: Spouse and Family Other Information That Helps Us Care for You: No Feels Safe at Home: Yes Safety Concerns: Feels Safe At This Time Smoking Status: Former smoker Do You Dip or Chew Tobacco: No Second Hand Exposure: No Tobacco Cessation Education Requested by Patient: No Hx Alcohol Use: No Hx Substance Use: No Results & Data Vital Signs Vital Signs - 24 hr 04/11/19 12:19 04/11/19 12:33 04/11/19 12:54 Temperature 36.7 C Temperature Source Oral Sepsis Recent Fever Within 48 Hours No Sepsis New/Unexplained Change in Mental Status No Sepsis Action Taken by Nursing No Action Required Pulse Rate 88 156 H Pulse Rate [Apical] Pulse Rate from SpO2 Sensor 90 Pulse Rhythm Regular Pulse Rhythm [Apical] Pulse Strength Normal Respiratory Rate 18 18 Respiratory Effort / Characteristics Non-Labored Spontaneous Respiratory Depth Normal Respiratory Pattern Regular Blood Pressure 120/77 136/119 H Blood Pressure Mean 91 124 Blood Pressure Position Sitting Pulse Oximetry 96 97 96 Oxygen Delivery Method Room Air Room Air Room Air 04/11/19 13:01 04/11/19 13:02 04/11/19 13:18 Temperature Temperature Source Sepsis Recent Fever Within 48 Hours Sepsis New/Unexplained Change in Mental Status Sepsis Action Taken by Nursing Pulse Rate 157 H 157 H Pulse Rate [Apical] 147 H Pulse Rate from SpO2 Sensor 99 H 90 Pulse Rhythm Pulse Rhythm [Apical] Pulse Strength Respiratory Rate 21 15 Respiratory Effort / Characteristics Respiratory Depth Respiratory Pattern Blood Pressure 117/79 Blood Pressure Mean 91 Blood Pressure Position Pulse Oximetry 95 96 95 Oxygen Delivery Method Room Air Room Air 04/11/19 13:30 04/11/19 13:39 04/11/19 14:02 Temperature Temperature Source Sepsis Recent Fever Within 48 Hours Sepsis New/Unexplained Change in Mental Status Sepsis Action Taken by Nursing Pulse Rate 135 H 164 H Pulse Rate [Apical] 154 H Pulse Rate from SpO2 Sensor 98 H Pulse Rhythm Pulse Rhythm [Apical] Pulse Strength Respiratory Rate 18 18 20 Respiratory Effort / Characteristics Respiratory Depth Respiratory Pattern Blood Pressure 109/88 108/71 Blood Pressure Mean 95 83 Blood Pressure Position Pulse Oximetry 94 Oxygen Delivery Method Room Air 04/11/19 14:14 Temperature Temperature Source Sepsis Recent Fever Within 48 Hours Sepsis New/Unexplained Change in Mental Status Sepsis Action Taken by Nursing Pulse Rate Pulse Rate [Apical] 133 H Pulse Rate from SpO2 Sensor Pulse Rhythm Pulse Rhythm [Apical] Irregular Pulse Strength Respiratory Rate 24 Respiratory Effort / Characteristics Non-Labored Spontaneous Respiratory Depth Normal Respiratory Pattern Regular Blood Pressure Blood Pressure Mean Blood Pressure Position Pulse Oximetry 95 Oxygen Delivery Method Room Air Home Medications Current Medication List: was personally reviewed by me Laboratory Data Attestation: I reviewed the patient's lab results. Result diagrams: 04/11/19 12:37 04/11/19 12:37 Lab Results 04/11/19 04/11/19 04/11/19 Range/Units 12:37 12:37 12:37 WBC 4.28 L (4.8-10.8) K/uL RBC 4.82 (4.7-6.1) M/uL Hgb 15.1 (14.0-18.0) g/dL Hct 44.3 (42-52) % MCV 91.9 (80-100) fL MCH 31.3 (25-34) pg MCHC 34.1 (32-36) g/dL RDW Std Deviation 41.6 (36.4-46.3) fL RDW Coeff of Tera 12.3 (11.5-14.5) % Plt Count 128 L (130-400) K/uL MPV 11.6 H (7.4-10.4) fL Immature Gran % (Auto) 0.2 % Neut % (Auto) 45.1 % Lymph % (Auto) 35.7 % [place] % (Auto) 14.5 % Eos % (Auto) 4.0 % Baso % (Auto) 0.5 % Immature Gran # (Auto) 0.01 (0.00-0.02) K/uL Neut # (Auto) 1.93 (1.4-6.5) K/uL Lymph # (Auto) 1.53 (1.2-3.4) K/uL [place] # (Auto) 0.62 H (0.11-0.59) K/uL Eos # (Auto) 0.17 (0-0.5) K/uL Baso # (Auto) 0.02 (0-0.2) K/uL Platelet Estimate Decreased L (Normal) PT 10.4 (9.0-12.0) Seconds INR 1.0 (0.9-1.1) APTT 23.9 (21.0-31.0) Seconds PTT Ratio 0.9 Sodium 140 (136-145) mmol/L Potassium 3.9 (3.5-5.1) mmol/L Chloride 105 (98-107) mmol/L Carbon Dioxide 30 (21-32) mmol/L Anion Gap 5.0 (3-11) BUN 16 (7-18) mg/dl Creatinine 0.94 (0.6-1.4) mg/dl Est Cr Clr Drug Dosing 104.1 ml/min Est GFR ( Amer) 101.0 Est GFR (Non-Af Amer) 87.2 BUN/Creatinine Ratio 16.8 (10-20) Glucose 158 H (70-99) mg/dl Calcium 8.9 (8.5-10.1) mg/dl Magnesium 2.4 (1.8-2.4) mg/dl Total Bilirubin 0.4 (0.2-1) mg/dl AST 19 (15-37) U/L ALT 40 (12-78) U/L Alkaline Phosphatase 74 (45-117) U/L Troponin I < 0.015 (0-0.045) ng/ml NT-Pro-B Natriuret Pep (0-900) pg/ml Total Protein 7.6 (6.4-8.2) gm/dl Albumin 4.0 (3.4-5.0) gm/dl Globulin 3.6 (2.5-4.0) gm/dl Albumin/Globulin Ratio 1.1 (0.9-2) TSH 1.170 (0.300-4.500) uIu/ml Urine Color Urine Appearance (Clear) Urine pH (4.5-7.5) Ur Specific [place] (1.000-1.030) Urine Protein (Negative) Urine Glucose (UA) (Negative) Urine Ketones (Negative) Urine Blood (Negative) Urine Nitrite (Negative) Urine Bilirubin (Negative) Urine Urobilinogen (Negative) Ur Leukocyte Esterase (Negative) Lyme Disease IgG Ab (Negative) Lyme Disease IgM Ab (Negative) 04/11/19 04/11/19 04/11/19 Range/Units 12:37 12:37 12:45 WBC (4.8-10.8) K/uL RBC (4.7-6.1) M/uL Hgb (14.0-18.0) g/dL Hct (42-52) % MCV (80-100) fL MCH (25-34) pg MCHC (32-36) g/dL RDW Std Deviation (36.4-46.3) fL RDW Coeff of Tera (11.5-14.5) % Plt Count (130-400) K/uL MPV (7.4-10.4) fL Immature Gran % (Auto) % Neut % (Auto) % Lymph % (Auto) % [place] % (Auto) % Eos % (Auto) % Baso % (Auto) % Immature Gran # (Auto) (0.00-0.02) K/uL Neut # (Auto) (1.4-6.5) K/uL Lymph # (Auto) (1.2-3.4) K/uL [place] # (Auto) (0.11-0.59) K/uL Eos # (Auto) (0-0.5) K/uL Baso # (Auto) (0-0.2) K/uL Platelet Estimate (Normal) PT (9.0-12.0) Seconds INR (0.9-1.1) APTT (21.0-31.0) Seconds PTT Ratio Sodium (136-145) mmol/L Potassium (3.5-5.1) mmol/L Chloride (98-107) mmol/L Carbon Dioxide (21-32) mmol/L Anion Gap (3-11) BUN (7-18) mg/dl Creatinine (0.6-1.4) mg/dl Est Cr Clr Drug Dosing ml/min Est GFR ( Amer) Est GFR (Non-Af Amer) BUN/Creatinine Ratio (10-20) Glucose (70-99) mg/dl Calcium (8.5-10.1) mg/dl Magnesium (1.8-2.4) mg/dl Total Bilirubin (0.2-1) mg/dl AST (15-37) U/L ALT (12-78) U/L Alkaline Phosphatase (45-117) U/L Troponin I (0-0.045) ng/ml NT-Pro-B Natriuret Pep 36 (0-900) pg/ml Total Protein (6.4-8.2) gm/dl Albumin (3.4-5.0) gm/dl Globulin (2.5-4.0) gm/dl Albumin/Globulin Ratio (0.9-2) TSH (0.300-4.500) uIu/ml Urine Color Yellow Urine Appearance Clear (Clear) Urine pH 5.0 (4.5-7.5) Ur Specific [place] 1.023 (1.000-1.030) Urine Protein Negative (Negative) Urine Glucose (UA) 3+ H (Negative) Urine Ketones Negative (Negative) Urine Blood Negative (Negative) Urine Nitrite Negative (Negative) Urine Bilirubin Negative (Negative) Urine Urobilinogen Negative (Negative) Ur Leukocyte Esterase Negative (Negative) Lyme Disease IgG Ab Negative (Negative) Lyme Disease IgM Ab Negative (Negative) Administered Medications Diltiazem HCl 125 mg/ Dextrose 125 mls @ 5 mls/hr IV .Q24H [facility]; Protocol Stop: 05/11/19 12:44 Last Titration: 04/11/19 14:15 Dose: 15 mg/hr, 15 mls/hr Documented by: [id number] Titration: 04/11/19 13:41 Dose: 10 mg/hr, 10 mls/hr Documented by: [id number] Admin: 04/11/19 13:14 Dose: 5 mg/hr, 5 mls/hr Documented by: [id number] Cosigned by: [id number] Heparin Sodium/Dextrose (Heparin Sodium/Dextrose) 25,000 units in 500 mls @ 32 mls/hr IV .[id number] [facility]; Protocol Stop: 05/11/19 12:59 Last Admin: 04/11/19 13:07 Dose: 1,600 units/hr, 32 mls/hr Documented by: [id number] Cosigned by: [id number] Discontinued Medications Diltiazem HCl (Cardizem) 10 mg IV NOW STA Stop: 04/11/19 12:36 Last Admin: 04/11/19 13:01 Dose: 10 mg Documented by: [id number] Cosigned by: [id number] Heparin Sodium (Porcine) (Heparin Iv Bolus) 7,000 units IV NOW STA Stop: 04/11/19 12:56 Last Admin: 04/11/19 13:06 Dose: 7,000 units Documented by: [id number] Cosigned by: [id number] Heparin Sodium/Dextrose () 1 ea N/A NOW STA; Protocol Stop: 04/11/19 12:36 Last Admin: 04/11/19 13:14 Dose: Not Given Documented by: [id number] Imaging Data Radiologist's Impression: Radiology results as stated below per my review and the radiologist's interpretation: XR chest 1V portable HISTORY: 63 years-old Male rapid afib, left chest pain acute left-sided chest pain COMPARISON: Chest radiograph 03/16/2017 TECHNIQUE: Portable AP view the chest FINDINGS: Cardiomediastinal and hilar silhouettes are unchanged. Chronic left hemidiaphragmatic elevation. No pneumothorax, pleural effusion, focal airspace consolidation or overt pulmonary edema. Degenerative changes of the shoulders and spine. IMPRESSION: 1. No acute process. 2. Chronic left hemidiaphragmatic elevation. The above report was generated using voice recognition software. It may contain grammatical, syntax or spelling errors. Electronically signed by: Justo Shankar M.D. 04/11/2019 12:47 PM ECG Data Attestation: I personally reviewed and interpreted this ECG as follows: Indication: chest pain Rate (beats per minute): 148 Rhythm: atrial fibrillation Findings: + other (RVR); no PVC and no ST elevation Comparison ECG Date: from (EKG performed at [facility]) Change: no significant change Blood Pressure Blood Pressure Findings: Normal blood pressure Blood Pressure Disposition: did not require urgent referral Discharge Plan Visit Data Chief Complaint: Cardiac Assessment Stated Complaint: HEART PALPITATIONS ED Provider: Gabino Humphreys Discharge Problem: Atrial fibrillation with RVR, Left-sided chest pain Patient Disposition: Being Evaluated by Hospitalist Forms Stand Alone Forms: My [facility] [employer] Prescriptions Prescriptions: No Action atorvastatin 40 mg tablet 40 mg PO QAM RF: 0 acetaminophen [Tylenol] 325 mg Tablet 325 mg PO UD PRN (Reason: Pain) RF: 0 glipizide 10 mg tablet extended release 24hr 10 mg PO QAM RF: 0 aspirin [Aspirin Low Dose] 81 mg Tablet,Delayed Release (Dr/Ec) 81 mg PO QAM RF: 0 metoprolol tartrate 50 mg tablet 50 mg PO BID RF: 0 lorazepam 1 mg tablet 1 mg PO UD PRN (Reason: Anxiety) RF: 0 lisinopril 2.5 mg tablet 2.5 mg PO QAM RF: 0 hydroxyzine pamoate 25 mg capsule 25 mg PO UD PRN (Reason: Motion Sickness) RF: 0 metformin 750 mg tablet extended release 24 hr 750 mg PO BID RF: 0 oxycodone 5 mg tablet 5 mg PO BID PRN (Reason: Pain) RF: 0 Referrals Referrals: Chuy Figueroa DO [Primary Care Provider] - Critical Care Time Critical Care Time: Yes Total Critical Care Time: 30 I have personally spent 30 minutes of critical care time in the direct management of this patient. This includes bedside care, interpretation of diagnostic studies, and testing, discussion with consultants, patient, and family members, and other required patient management activities. These 30 minutes are in excess of all separately billable procedures. The scribe's documentation has been prepared under my direction and personally reviewed by me in its entirety. I confirm that the note above accurately reflects all work, treatment, procedures, and medical decision making performed by me.
[2019-04-11] MEDS ORDERED: GLUCAGON FOR INJ 1 MG VIAL SQ PRN (15:52)
[2019-04-11] MEDS ORDERED: DEXTROSE 50% 50 ML SYRINGE IV PRN (15:52)
[2019-04-11] MEDS ORDERED: GLUCOSE 10 TABS/TUBE PO PRN (15:52)
[2019-04-11] MEDS ORDERED: CARBOHYDRATES FOR HYPOGLYCEMIA PO PRN (15:52)
[2019-04-11] MEDS ORDERED: MAGNESIUM HYDROXIDE SUSP 30 ML UDC PO PRN (15:52)
[2019-04-11] MEDS ORDERED: OXYCODONE HCL IR 5 MG TAB (IMMEDIATE RELEASE) PO PRN (15:52)
[2019-04-11] MEDS ORDERED: GLUCOSE 40% GEL 15 GM TUBE PO PRN (15:52)
[2019-04-11] MEDS ORDERED: ALUMINUM/MAGNESIUM SUSP 30 ML UDC PO PRN (15:52)
[2019-04-11] MEDS ORDERED: POLYETHYLENE (MIRALAX) 17 GM PACK PO PRN (15:52)
[2019-04-11] MEDS ORDERED: ONDANSETRON INJ 2 MG/ML 2 ML VIAL IV PRN (15:52)
[2019-04-11] MEDS ORDERED: Heparin IV Standard *NO* Bolus IV ONE (15:52)
[2019-04-11] MEDS ORDERED: Heparin Adult STANDARD Wt-Based Dextrose 5% 25,000 units/500 mL IV SCH (16:15)
[2019-04-11] MEDS ORDERED: METOPROLOL TARTRATE 1 MG/ML VIAL IV PRN (16:26)
[2019-04-11] MEDS: INSULIN ASPART 100 UNITS/ML 3 ML PEN SC SCH ×2 (17:00→20:57)
--- NOTE | 2019-04-11 17:47 | Cardiology Consultation ---
Date of Consultation April 11, 2019 Assessment & Plan (1) Atrial fibrillation with RVR: (2) Left-sided chest pain: Patient had transient left-sided chest discomfort, based on the fact that he is on high-dose IV diltiazem infusion at 50 mg/h, and his heart rate is still 110 bpm at rest, I would speculate that he had very high ventricular rates with minimal exertion and this might explain his chest discomfort. He does however have underlying type 2 diabetes mellitus and dyslipidemia, therefore underlying coronary artery disease is a consideration. Fortunately his echocardiogram reveals normal to hyperdynamic LV systolic function. Per the patient's description, he has been in this rhythm for greater than 48 hours. He is Scottie on metoprolol baseline. This is been continued and he is on unfractionated heparin drip and diltiazem. Continue prior to arrival dose of metoprolol tartrate 50 mg twice daily for now along with IV diltiazem. In terms of stroke prophylaxis his [id number] score is 2 for h/o DM and HTN. I am going to transition him from unfractioned heparin to Eliquis 5 mg twice daily for ongoing stroke prophylaxis. He describes having nausea with a previous anticoagulant, per review of his record, this was likely dabigatran. We will have his unfractioned heparin infusion discontinued at 8 PM, and will have the first dose of Eliquis administered at that time, and every 12 hours thereafter, 8 AM, 8 PM. The patient's outpatient pharmacy is [facility], which is currently closed. We will need to contact the pharmacy tomorrow to determine his [id number] cost. Regarding his chest pain, cardiac enzymes are negative x1. We will follow. After his atrial fibrillation is controlled, outpatient pharmacologic nuclear stress testing will be considered depending upon his hospital course. Dr Demarco to assume the rounding service 04/12/19. History of Present Illness Attending Physician: Willard Walker MD History of Present Illness Olu Velasquez is a 63 year old male seen in cardiology consultation per the request of Sheron Orta PA-C of the [facility] service for the evaluation of atrial fibrillation with rapid ventricular response and chest discomfort. The patient has a past history of symptomatic paroxysmal atrial flutter. This came to recognition in 2015 when he was evaluated for symptoms of episodic palpitations and transient dizziness. A long-term outpatient firearms specialist revealed episodes of atrial flutter. He has been seen initially by Dr. Yaya demarco and was referred to Dr May Stewart of [facility] electrophysiology. The patient subsequently underwent caval tricuspid isthmus ablation of a right-sided atrial flutter on 05/22/2016. A post procedure firearms specialist revealed no recurrence of arrhythmia, and anticoagulation was subsequently discontinued. He has been maintained on metoprolol 50 mg twice daily in the meantime. He notes that after the ablation he would have rare brief episodes of palpitations. For the last 2 weeks he was on vacation in [place]. He states that he drank very minimal alcohol while there, and he enjoyed the history and the food. He started having episodes of palpitations and he could feel a prominent heart rate in his neck 3 to 4 days ago, he had episodic dizziness similar to what he had when he had atrial flutter in the past. His spouse had injured her hand and was therefore seen at Dr. Figueroa's office. The patient reported that he was having an episode, and therefore an EKG was performed which confirmed the presence of atrial fibrillation with rapid ventricular response. He was referred to the emergency department. He also noted having had transient left-sided chest discomfort which has since passed. Thus far he has received a bolus of IV diltiazem and an infusion is currently running at 50 mg/h. Unfractioned heparin had been initiated for stroke prophylaxis. He is currently comfortable and had finished his evening meal. His past medical history is otherwise notable for type 2 diabetes mellitus for which he takes oral agents, hypertension, and dyslipidemia. His most recent outpatient LDL cholesterol in August 2018 was 45 mg/dL on statin therapy. Family History: Mother due to complications of lung cancer, she was a former smoker His father of what the patient describes as an aneurysm in a groin artery The patient's brother has a history of what sounds like atrial fibrillation or atrial flutter having received a prior cardioversion Allergies Allergy/AdvReac Type Severity Reaction Status Date / Time NSAIDS (Non-Steroidal AdvReac Severe GIB Verified 04/11/19 14:45 Anti-Inflamma Iodinated Contrast- Oral and AdvReac Mild GI Verified 04/11/19 13:46 IV Dye SYMPTOMS FROM BONE SCAN DYE Home Medications Home Medications Medication Instructions Recorded Confirmed Type acetaminophen [Tylenol] 325 mg PO UD PRN 04/11/19 04/11/19 History aspirin [Aspirin Low Dose] 81 mg PO QAM 04/11/19 04/11/19 History atorvastatin 40 mg PO QAM 04/11/19 04/11/19 History glipizide 10 mg PO QAM 04/11/19 04/11/19 History hydroxyzine pamoate 25 mg PO UD PRN 04/11/19 04/11/19 History lisinopril 2.5 mg PO QAM 04/11/19 04/11/19 History lorazepam 1 mg PO UD PRN 04/11/19 04/11/19 History metformin 750 mg PO BID 04/11/19 04/11/19 History metoprolol tartrate 50 mg PO BID 04/11/19 04/11/19 History oxycodone 5 mg PO BID PRN 04/11/19 04/11/19 History Patient History Medical History History of fractured rib (Chronic) multiple L sided HLD (hyperlipidemia) (Chronic) HTN (hypertension) (Chronic) Osteoarthritis (Chronic) CMC arthritis (Chronic) T2DM (type 2 diabetes mellitus) (Chronic) Surgical History History of surgery on upper extremity (Chronic) L arm secondary to work accident - plates to L forearm History of cardiac radiofrequency ablation (Chronic) caval tricuspid isthmus ablation with bidirectional block by Dr. Stewart 05/23/16 Family History Mother Lung cancer Father Aneurysm Brother Arrhythmia Social History Preferred Language: Bangladeshi Communication Ability: Effective Rheumatology Specialist Required: No Beliefs That Will Affect Care: None marital status: Current Living Situation: Spouse and Family Other Information That Helps Us Care for You: No Feels Safe at Home: Yes Safety Concerns: Feels Safe At This Time Smoking Status: Former smoker Years Smoked: 15 Cigarettes Per Day: 1ppd Do You Dip or Chew Tobacco: No Number of Years Since Quit: 35 Second Hand Exposure: No Tobacco Cessation Education Requested by Patient: No Hx Alcohol Use: Yes Alcohol type: wine Hx Substance Use: Yes substance use type: does not use and prescription drug Substance Use Type Other:: chronic percocet for arthritis Review of Systems Review of Systems: All systems reviewed & are unremarkable except as noted in HPI & below Physical Exam Constitutional: WD/WN, vitals as above Neck: trachea midline, no thyromegaly Respiratory: normal respiratory effort, lungs clear to auscultation Cardiovascular: Rate/Rhythm: + tachycardic and + irregularly irregular Heart Sounds: no murmur Vessels: no JVD Extremities: no edema Gastrointestinal (Abdomen): normal bowel sounds, soft, nontender, no hepatosplenomegaly Skin: no rashes, warm and dry Neurologic: PERRL, EOMI, accommodation nl, no face palsy, no dysarthria moves all extremities; no focal motor deficits Psychiatric: A+Ox3, euthymic affect Results & Data Vital Signs (Past 12 Hours) Vital Signs Temp Pulse Pulse Resp BP BP Pulse Ox 04/11/19 16:00 109 H 04/11/19 15:52 36.8 C 130 H 20 131/75 96 04/11/19 15:00 109 H 22 108/89 95 04/11/19 14:30 144 H 21 109/78 93 04/11/19 14:14 133 H 24 95 04/11/19 14:02 164 H 20 108/71 04/11/19 13:39 154 H 18 04/11/19 13:30 135 H 18 109/88 94 04/11/19 13:18 147 H 95 04/11/19 13:02 157 H 15 96 04/11/19 13:01 157 H 21 117/79 95 04/11/19 12:54 96 04/11/19 12:33 156 H 18 136/119 H 97 04/11/19 12:19 36.7 C 88 18 120/77 96 Laboratory Results Cardiac Enzymes 04/11/19 Range/Units 12:37 AST 19 (15-37) U/L Troponin I < 0.015 (0-0.045) ng/ml Coagulation 04/11/19 Range/Units 12:37 PT 10.4 (9.0-12.0) Seconds APTT 23.9 (21.0-31.0) Seconds CBC 04/11/19 Range/Units 12:37 WBC 4.28 L (4.8-10.8) K/uL RBC 4.82 (4.7-6.1) M/uL Hgb 15.1 (14.0-18.0) g/dL Hct 44.3 (42-52) % Plt Count 128 L (130-400) K/uL Neut # (Auto) 1.93 (1.4-6.5) K/uL Lymph # (Auto) 1.53 (1.2-3.4) K/uL [place] # (Auto) 0.62 H (0.11-0.59) K/uL Eos # (Auto) 0.17 (0-0.5) K/uL Baso # (Auto) 0.02 (0-0.2) K/uL Comprehensive Metabolic Panel 04/11/19 Range/Units 12:37 Sodium 140 (136-145) mmol/L Potassium 3.9 (3.5-5.1) mmol/L Chloride 105 (98-107) mmol/L Carbon Dioxide 30 (21-32) mmol/L BUN 16 (7-18) mg/dl Creatinine 0.94 (0.6-1.4) mg/dl Glucose 158 H (70-99) mg/dl Calcium 8.9 (8.5-10.1) mg/dl AST 19 (15-37) U/L ALT 40 (12-78) U/L Alkaline Phosphatase 74 (45-117) U/L Total Protein 7.6 (6.4-8.2) gm/dl Albumin 4.0 (3.4-5.0) gm/dl Intake and Output 04/11/19 04/11/19 04/11/19 06:59 14:59 22:59 Intake Total 7.917 / 7.917 Balance 7.917 / 7.917 Intake: IV 7.917 / 7.917 Cardizem 125 mg In D5 100 ml @ 7.917 / 7.917 5 MG/HR 5 mls/hr IV .Q24H [facility] Rx#:[id number] Other: Weight 103.2 kg Patient Weight 04/12/19 06:59 Weight 103.2 kg Diagnostic Findings EKG performed on presentation 04/11/2019 12:24 PM reveals atrial fibrillation with rapid ventricular response at 148 bpm with occasional PVCs, diffuse nonspecific T wave flattening noted. Echocardiogram revealed normal left ventricular wall motion with hyperdynamic LV systolic function, ejection fraction in the range of 65-70%, no significant valvular heart disease was noted, the left atrial chamber size was within normal limits Medications Administered Current Inpatient Medications Acetaminophen (Tylenol) 650 mg PO Q4H PRN PRN Reason: Pain or Fever Stop: 05/11/19 15:51 Al Hydrox/Mg Hydrox/Simethicone (Maalox) 15 ml PO Q4H PRN PRN Reason: Dyspepsia Stop: 05/11/19 15:51 Apixaban (Eliquis) 5 mg PO Q12H ALYSIA Stop: 05/11/19 19:59 Atorvastatin Calcium (Lipitor) 40 mg PO QAM [facility] Stop: 05/12/19 08:59 Dextrose (Dextrose 50%) 25 - 50 ml IV UD PRN; Protocol PRN Reason: Hypoglycemia Protocol Stop: 05/11/19 15:51 Glucagon (Glucagen) 1 mg SQ UD PRN; Protocol PRN Reason: Hypoglycemia Protocol Stop: 05/11/19 15:51 Glucose (Dex4 Glucose) 4 - 8 tabs PO UD PRN; Protocol PRN Reason: Hypoglycemia Protocol Stop: 05/11/19 15:51 Glucose (Glucose 40%) 15 - 30 gm PO UD PRN; Protocol PRN Reason: Hypoglycemia Protocol Stop: 05/11/19 15:51 Diltiazem HCl 125 mg/ Dextrose 125 mls @ 5 mls/hr IV .Q24H ALYSIA; Protocol Stop: 05/11/19 12:44 Last Titration: 04/11/19 14:15 Dose: 15 mg/hr, 15 mls/hr Documented by: Heparin Sodium/Dextrose (Heparin Sodium/Dextrose) 25,000 units in 500 mls @ 32 mls/hr IV .[id number] ALYSIA; Protocol Stop: 04/11/19 20:00 Last Admin: 04/11/19 13:07 Dose: 1,600 units/hr, 32 mls/hr Documented by: Insulin Aspart (Novolog Flexpen) 0 units SC ACHS ALYSIA Stop: 05/11/19 16:29 Last Admin: 04/11/19 17:00 Dose: 5 units Documented by: Insulin Glargine (Lantus Solostar Pen) 0 - 8 units SC BID [facility] Stop: 05/11/19 20:59 Lisinopril (Zestril) 2.5 mg PO QAM [facility] Stop: 05/12/19 08:59 Magnesium Hydroxide (Milk Of Magnesia) 30 ml PO Q12H PRN PRN Reason: Constipation Stop: 05/11/19 15:51 Metoprolol Tartrate (Lopressor) 50 mg PO BID [facility] Stop: 05/11/19 20:59 Metoprolol Tartrate (Lopressor) 5 mg IV Q4 PRN PRN Reason: heart rate above 110 bpm Stop: 05/11/19 19:59 Miscellaneous (Carbohydrates For Hypoglycemia) 15 - 30 gm PO UD PRN PRN Reason: Hypoglycemia Treatment Stop: 05/11/19 15:51 Miscellaneous (Stop Order) 1 ea N/A TODAY@1999 Stop: 04/11/19 20:01 Ondansetron HCl (Zofran) 4 mg IV Q6H PRN PRN Reason: Nausea Stop: 05/11/19 15:51 Oxycodone HCl (Roxicodone Immediate Rel) 5 mg PO BID PRN PRN Reason: Pain Stop: 04/25/19 15:51 Polyethylene Glycol (Miralax Powder Packet) 17 gm PO DAILY PRN PRN Reason: Constipation Stop: 05/11/19 15:51
[2019-04-11] MEDS: ACETAMINOPHEN 325 MG TAB PO PRN (19:13)
[2019-04-11] MEDS: APIXABAN 5 MG TABLET PO SCH (20:00)
[2019-04-11] MEDS: METOPROLOL TARTRATE 50 MG TAB PO SCH (20:04)
[2019-04-11] MEDS: INSULIN GLARGINE SOLOSTAR 100 UNITS/ML 3 ML PEN SC SCH (20:57)
[2019-04-12] MEDS: ACETAMINOPHEN 325 MG TAB PO PRN (02:58)
[2019-04-12 06:06] LABS: Hemoglobin 14.5 g/dL (14.0-18.0); Mean Corpuscular Hgb Conc 33.7 g/dL (32-36); Mean Corpuscular Volume 91.5 fL (80-100); Mean Platelet Volume 11.8 fL (7.4-10.4); Platelet Count 107 K/uL (130-400); RDW Coefficient of Variation 12.5 % (11.5-14.5); RDW Standard Deviation 42.2 fL (36.4-46.3); White Blood Count 4.68 K/uL (4.8-10.8)
[2019-04-12 06:38] LABS: BUN Creatinine Ratio 15.3 (10-20); Calcium 8.5 mg/dl (8.5-10.1); Creatinine Clr Calc Pharmacy 125.2 ml/min; Est GFR (African American) 112.9; Est GFR (Non-African American) 97.4
[2019-04-12] MEDS: APIXABAN 5 MG TABLET PO SCH (08:06)
[2019-04-12] MEDS: METOPROLOL TARTRATE 50 MG TAB PO SCH (08:07)
[2019-04-12] MEDS: INSULIN GLARGINE SOLOSTAR 100 UNITS/ML 3 ML PEN SC SCH (08:09)
[2019-04-12] MEDS: INSULIN ASPART 100 UNITS/ML 3 ML PEN SC SCH ×2 (08:10→11:58)
[2019-04-12] MEDS ORDERED: ATORVASTATIN 40 MG TAB PO SCH (09:00)
[2019-04-12] MEDS ORDERED: LISINOPRIL 2.5 MG TAB PO SCH (09:00)
[2019-04-12] MEDS ORDERED: METOPROLOL TARTRATE 25 MG TAB PO STA (10:09)
--- NOTE | 2019-04-12 10:12 | Cardiology Progress Note ---
Date of Service April 12, 2019 Assessment & Plan (1) Atrial fibrillation with RVR: Converted to sinus rhythm at 10:20 PM. Remains in sinus rhythm. Discuss further treatment options with antiarrhythmic therapy, specifically, remaining hospitalized for loading with sotalol. Patient prefers discharge with titration of beta-michael therapy. He would be agreeable to antiarrhythmic therapy in the future if he has recurrent symptomatic episodes which are prolonged. Recommend outpatient exercise stress echocardiography for further risk stratification. Also recommend repeat CBC on Sunday to reassess platelet count. Cardiology follow-up in 2 weeks. Subjective Patient seen and examined at the bedside. Converted to normal sinus rhythm at approximately 10:20 PM. 2.3-second postconversion pause noted. No symptoms noted. Patient remains in sinus rhythm overnight. Reports multiple episodes of palpitations over the past 6 months. In general the palpitations have been short-lived lasting less than 1 to 2 hours. During his most recent episode prompting hospitalization, he noted chest heaviness with exertion. Markedly elevated ventricular rates noted. Currently pain-free. Cardiac enzymes are negative. Echocardiogram demonstrates no regional wall motion abnormalities. Patient anxious for discharge. Tolerating Eliquis. Review of Systems Review of Systems: All systems reviewed & are unremarkable except as noted in HPI & below Physical Exam Physical Exam: General: NAD, AAO x3, well nourished. HEENT: Normocephalic. Atraumatic. Conjunctiva pink, no scleral icterus. Neck: No carotid bruits, the carotid upstrokes are brisk. No JVD. No HJR Heart: Regular normal S-1 and S-2 no S-3 or S-4 gallop. No murmurs or rub appreciated. PMI is not displaced. No RV heave. Lungs: Clear bilateral without rales , rhonchi, or wheeze. Abdomen: Normal bowel sounds. Soft. Nontender. No masses or organomegaly. No abdominal bruits. Extremities: No clubbing, cyanosis, or edema. Pulses: radial=2/4, Dorsalis pedis =2/4, posterior tibial=2/4. Neuro: Cranial nerves grossly i ntact. No focal motor deficit. Results & Data Vital Signs (Past 12 Hours) Vital Signs Temp Pulse Pulse Resp BP Pulse Ox 04/12/19 08:00 60 04/12/19 06:59 36.5 C 62 18 94/64 L 94 06/15/19 02:49 36.5 C 61 16 127/90 94 04/12/19 00:38 60 04/11/19 22:54 36.5 C 64 18 100/65 95 Laboratory Results Laboratory Results - last 24 hr 04/11/19 04/11/19 04/11/19 12:37 12:37 12:37 WBC 4.28 L RBC 4.82 Hgb 15.1 Hct 44.3 MCV 91.9 MCH 31.3 MCHC 34.1 RDW Std Deviation 41.6 RDW Coeff of Tera 12.3 Plt Count 128 L MPV 11.6 H Immature Gran % (Auto) 0.2 Neut % (Auto) 45.1 Lymph % (Auto) 35.7 [place] % (Auto) 14.5 Eos % (Auto) 4.0 Baso % (Auto) 0.5 Immature Gran # (Auto) 0.01 Neut # (Auto) 1.93 Lymph # (Auto) 1.53 [place] # (Auto) 0.62 H Eos # (Auto) 0.17 Baso # (Auto) 0.02 Platelet Estimate Decreased L PT 10.4 INR 1.0 APTT 23.9 PTT Ratio 0.9 Sodium 140 Potassium 3.9 Chloride 105 Carbon Dioxide 30 Anion Gap 5.0 BUN 16 Creatinine 0.94 Est Cr Clr Drug Dosing 104.1 Est GFR ( Amer) 101.0 Est GFR (Non-Af Amer) 87.2 BUN/Creatinine Ratio 16.8 Glucose 158 H POC Glucose Calcium 8.9 Magnesium 2.4 Total Bilirubin 0.4 AST 19 ALT 40 Alkaline Phosphatase 74 Troponin I < 0.015 NT-Pro-B Natriuret Pep Total Protein 7.6 Albumin 4.0 Globulin 3.6 Albumin/Globulin Ratio 1.1 TSH 1.170 Urine Color Urine Appearance Urine pH Ur Specific [place] Urine Protein Urine Glucose (UA) Urine Ketones Urine Blood Urine Nitrite Urine Bilirubin Urine Urobilinogen Ur Leukocyte Esterase Lyme Disease IgG Ab Lyme Disease IgM Ab 04/11/19 04/11/19 04/11/19 12:37 12:37 12:45 WBC RBC Hgb Hct MCV MCH MCHC RDW Std Deviation RDW Coeff of Tera Plt Count MPV Immature Gran % (Auto) Neut % (Auto) Lymph % (Auto) [place] % (Auto) Eos % (Auto) Baso % (Auto) Immature Gran # (Auto) Neut # (Auto) Lymph # (Auto) [place] # (Auto) Eos # (Auto) Baso # (Auto) Platelet Estimate PT INR APTT PTT Ratio Sodium Potassium Chloride Carbon Dioxide Anion Gap BUN Creatinine Est Cr Clr Drug Dosing Est GFR ( Amer) Est GFR (Non-Af Amer) BUN/Creatinine Ratio Glucose POC Glucose Calcium Magnesium Total Bilirubin AST ALT Alkaline Phosphatase Troponin I NT-Pro-B Natriuret Pep 36 Total Protein Albumin Globulin Albumin/Globulin Ratio TSH Urine Color Yellow Urine Appearance Clear Urine pH 5.0 Ur Specific [place] 1.023 Urine Protein Negative Urine Glucose (UA) 3+ H Urine Ketones Negative Urine Blood Negative Urine Nitrite Negative Urine Bilirubin Negative Urine Urobilinogen Negative Ur Leukocyte Esterase Negative Lyme Disease IgG Ab Negative Lyme Disease IgM Ab Negative 04/11/19 04/11/19 04/11/19 16:34 18:26 20:56 WBC RBC Hgb Hct MCV MCH MCHC RDW Std Deviation RDW Coeff of Tera Plt Count MPV Immature Gran % (Auto) Neut % (Auto) Lymph % (Auto) [place] % (Auto) Eos % (Auto) Baso % (Auto) Immature Gran # (Auto) Neut # (Auto) Lymph # (Auto) [place] # (Auto) Eos # (Auto) Baso # (Auto) Platelet Estimate PT INR APTT PTT Ratio Sodium Potassium Chloride Carbon Dioxide Anion Gap BUN Creatinine Est Cr Clr Drug Dosing Est GFR ( Amer) Est GFR (Non-Af Amer) BUN/Creatinine Ratio Glucose POC Glucose 217 H 139 H Calcium Magnesium Total Bilirubin AST ALT Alkaline Phosphatase Troponin I < 0.015 NT-Pro-B Natriuret Pep Total Protein Albumin Globulin Albumin/Globulin Ratio TSH Urine Color Urine Appearance Urine pH Ur Specific [place] Urine Protein Urine Glucose (UA) Urine Ketones Urine Blood Urine Nitrite Urine Bilirubin Urine Urobilinogen Ur Leukocyte Esterase Lyme Disease IgG Ab Lyme Disease IgM Ab 04/12/19 04/12/19 04/12/19 00:15 05:28 05:28 WBC 4.68 L RBC 4.70 Hgb 14.5 Hct 43.0 MCV 91.5 MCH 30.9 MCHC 33.7 RDW Std Deviation 42.2 RDW Coeff of Tera 12.5 Plt Count 107 L MPV 11.8 H Immature Gran % (Auto) Neut % (Auto) Lymph % (Auto) [place] % (Auto) Eos % (Auto) Baso % (Auto) Immature Gran # (Auto) Neut # (Auto) Lymph # (Auto) [place] # (Auto) Eos # (Auto) Baso # (Auto) Platelet Estimate PT INR APTT PTT Ratio Sodium 138 Potassium 4.0 Chloride 105 Carbon Dioxide 28 Anion Gap 5.0 BUN 12 Creatinine 0.78 Est Cr Clr Drug Dosing 125.2 Est GFR ( Amer) 112.9 Est GFR (Non-Af Amer) 97.4 BUN/Creatinine Ratio 15.3 Glucose 178 H POC Glucose Calcium 8.5 Magnesium Total Bilirubin AST ALT Alkaline Phosphatase Troponin I < 0.015 NT-Pro-B Natriuret Pep Total Protein Albumin Globulin Albumin/Globulin Ratio TSH Urine Color Urine Appearance Urine pH Ur Specific [place] Urine Protein Urine Glucose (UA) Urine Ketones Urine Blood Urine Nitrite Urine Bilirubin Urine Urobilinogen Ur Leukocyte Esterase Lyme Disease IgG Ab Lyme Disease IgM Ab 04/12/19 07:18 WBC RBC Hgb Hct MCV MCH MCHC RDW Std Deviation RDW Coeff of Tera Plt Count MPV Immature Gran % (Auto) Neut % (Auto) Lymph % (Auto) [place] % (Auto) Eos % (Auto) Baso % (Auto) Immature Gran # (Auto) Neut # (Auto) Lymph # (Auto) [place] # (Auto) Eos # (Auto) Baso # (Auto) Platelet Estimate PT INR APTT PTT Ratio Sodium Potassium Chloride Carbon Dioxide Anion Gap BUN Creatinine Est Cr Clr Drug Dosing Est GFR ( Amer) Est GFR (Non-Af Amer) BUN/Creatinine Ratio Glucose POC Glucose 159 H Calcium Magnesium Total Bilirubin AST ALT Alkaline Phosphatase Troponin I NT-Pro-B Natriuret Pep Total Protein Albumin Globulin Albumin/Globulin Ratio TSH Urine Color Urine Appearance Urine pH Ur Specific [place] Urine Protein Urine Glucose (UA) Urine Ketones Urine Blood Urine Nitrite Urine Bilirubin Urine Urobilinogen Ur Leukocyte Esterase Lyme Disease IgG Ab Lyme Disease IgM Ab
--- NOTE | 2019-04-12 12:45 | Hospitalist Progress Note ---
Date of Service April 12, 2019 Assessment & Plan (1) Atrial fibrillation with RVR: This is a 63-year-old male who has a significant past medical history of a Aflutter s/p caval tricuspid isthmus ablation with bidirectional block by Dr. Stewart 05/23/16, T2DM, HTN HLD, Osteoarthritis on chronic narcotics who presents to [facility] ED secondary to heart racing off and on x 1 week. Atrial Fibrillation with Rapid ventricular response Anticoagulated with anticoagulation therapy -was started on IV Diltiazem and heparin heparin drip in the ED on 04/12/19 -patient was admitted telemetry for further monitoring and treatment, patient was then transitioned to Eliquis by cardiology service from heparin drip for systemic anticoagulation -patient converted to sinus rhythm by night time of 04/12/19 and off diltiazem drip -echocardiogram reveals normal to hyperdynamic LV systolic function. -patient was back to home dose metoprolol 50 mg BID by AM of 04/12/19. Cardiology service gave additional 25 mg metoprolol. Patient was offered sotalol therapy but declined -Patient's current heart rate is sinus and bradycardic -Patient should take metoprolol tartrate as increased from 50 mg twice daily home dose to 75 mg twice daily on discharge. Patient should report to primary care medical doctor if any symptoms of lightheadedness or dizziness while on increased metoprolol medications -Patient should take Eliquis 5 mg twice daily to lower stroke risk from atrial fibrillation. Patient should have repeat CBC performed by primary care doctor on follow up visit to check blood counts and platelets while on Eliquis -Patient has follow up 04/16/2019 11:10 AM Provider Chuy Figueroa DO Department [facility] -Dr. Champagne will plan outpatient exercise stress echocardiography for further risk stratification. office visit 05/06/2019 1:00 PM Provider Yaya Champagne DO Department Cardiology, [facility] (2) Left-sided chest pain: -chest discomforts resolved with control of heart rate and rhythm (3) T2DM (type 2 diabetes mellitus): Diabetes Mellitus Type 2 without complication without car storer current use of insulin A1C 7.8 02/2019 -on metformin and glipizide at home -Lantus/NovoLog per protocol while in the hospital -resume outpatient metformin and glipizide as outpatient (4) HTN (hypertension): blood pressure controlled with lisinopril and metoprolol (5) HLD (hyperlipidemia): continue statin (6) Osteoarthritis: oxycodone as needed - takes 1-2x daily Pt with chronic substance agreement with PCP (7) DVT prophylaxis: -Eliquis Discharge Diagnosis Atrial fibrillation with Rapid ventricular response, anticoagulated by anticoagulation therapy, Diabetes Mellitus Type 2 without complication without half-way current use of insulin Subjective Patient seen and examined at bedside. no chest pain. no shortness of breath. no vomiting. no dizziness. no headache. bradycardia but sinus rhythm. we discussed discharge plans in coordination with cardiology service recommendations Physical Exam Constitutional: WD/WN, vitals as above Eyes: PERRL, conjunctivae normal, anicteric sclerae EOM intact bilaterally ENMT: external ear and nose normal, oropharynx normal Neck: trachea midline, no thyromegaly normal visual inspection Respiratory: normal respiratory effort, lungs clear to auscultation Cardiovascular: Rate/Rhythm: regular rate and + bradycardic Gastrointestinal (Abdomen): normal bowel sounds, soft, nontender, no hepatosplenomegaly Musculoskeletal: no cyanosis or clubbing, extremities motor strength 5/5 Head/Neck/Chest: normocephalic and head atraumatic Neurologic: PERRL, EOMI, accommodation nl, no face palsy, no dysarthria CN's II-XI intact bilaterally Psychiatric: A+Ox3, euthymic affect Results & Data Vital Signs (Past 12 Hours) Vital Signs Temp Pulse Pulse Resp BP Pulse Ox 04/12/19 11:38 36.7 C 58 L 18 97/63 L 94 04/12/19 08:00 60 04/12/19 06:59 36.5 C 62 18 94/64 L 94 04/12/19 02:49 36.5 C 61 16 127/90 94
--- NOTE | 2019-04-12 12:56 | Discharge Summary ---
Date of Service April 12, 2019 Admission HPI Per Admitting Provider This is a 63-year-old male who has a significant past medical history of a Aflutter s/p caval tricuspid isthmus ablation with bidirectional block by Dr. Stewart 05/23/16, T2DM, HTN HLD, Osteoarthritis on chronic narcotics who presents to [facility] ED secondary to heart racing off and on x 1 week. Pt states since his ablation back in 2015 he noticed intermittent symptoms about once per month. Sx including dizziness, off balance, MIRANDA, SOB at rest, L sided chest discomfort, blurry vision, lasting minutes to hours. Over the past 6 months has been noticing increased episodes, more specifically the past week has noticed several episodes while traveling. Sx have been persistent since getting off the plane yesterday. He attributed it to traveling. At PCP office today for 's appointment mentioned he felt his heart racing. They took an ECG which noted Afib with RVR so recommended he seek ED immediately. Currently he feels, "like a pin cushion." Complains of L sided chest pressure, dull, non radiating, 2/10, nothing makes better/worse with associated sob at rest, miranda, 2 pillow orthopnea, PND, increased lower ext swelling which improves in a.m. He has not taken any medications today given his pills are in his luggage which is did not travel with him. He denies any syncope, current dizziness, lightheaded, n/v/d, change in bowel or urinary habits. Appetite and weight are unchanged. No recent illness. Unfortunately has not followed up with cardiology since 05/2016. Admission Exam Per Admitting Provider Gen: WD/WN, M, NAD, sitting up in bed, pleasant, conversing easily Head: Normocephalic, Atraumatic Eyes: Sclera normal, no conjunctival injection, PERRLA, EOMI ENT: Gross hearing intact, normal pharynx, mucous membranes moist Neck: supple, no adenopathy, No JVD, no bruit, Resp: Clear to auscultation b/l with significantly diminished breath sounds LLL from previous trauma, no wheeze, rales, rhonchi. 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 Extremities: trace to +1 pedal and pretibial edema bilaterally Skin: warm, moist, no rash, negative turgor, cap refill < 2sec Neuro: Alert and oriented x 3, speech normal, good mood/affect, cran nerve 2-12 intact grossly : deferred Principal Diagnosis Atrial fibrillation with Rapid ventricular response, anticoagulated by anticoagulation therapy, Diabetes Mellitus Type 2 without complication without senior care current use of insulin Discharge Exam Constitutional WD/WN, vitals as above Eyes PERRL, conjunctivae normal, anicteric sclerae EOM intact bilaterally ENMT external ear and nose normal, oropharynx normal Neck trachea midline, no thyromegaly normal visual inspection Respiratory normal respiratory effort, lungs clear to auscultation Cardiovascular Rate/Rhythm: regular rate and + bradycardic Gastrointestinal (Abdomen) normal bowel sounds, soft, nontender, no hepatosplenomegaly Musculoskeletal no cyanosis or clubbing, extremities motor strength 5/5 Head/Neck/Chest: normocephalic and head atraumatic Neurologic PERRL, EOMI, accommodation nl, no face palsy, no dysarthria CN's II-XI intact bilaterally Psychiatric A+Ox3, euthymic affect Discharge Data Allergies Allergy/AdvReac Type Severity Reaction Status Date / Time NSAIDS (Non-Steroidal AdvReac Severe GIB Verified 04/11/19 14:45 Anti-Inflamma Iodinated Contrast- Oral and AdvReac Mild GI Verified 04/11/19 13:46 IV Dye SYMPTOMS FROM BONE SCAN DYE Consultations 04/11/19 13:37 ED Decision to Admit Stat 04/11/19 13:54 Consult Cardiology Routine 04/11/19 15:52 Consult Case Management - Discharge Planning Routine Hospital Course (1) Atrial fibrillation with RVR: This is a 63-year-old male who has a significant past medical history of a Aflutter s/p caval tricuspid isthmus ablation with bidirectional block by Dr. Stewart 05/23/16, T2DM, HTN HLD, Osteoarthritis on chronic narcotics who presents to [facility] ED secondary to heart racing off and on x 1 week. Atrial Fibrillation with Rapid ventricular response Anticoagulated with anticoagulation therapy -was started on IV Diltiazem and heparin heparin drip in the ED on 04/12/19 -patient was admitted telemetry for further monitoring and treatment, patient was then transitioned to Eliquis by cardiology service from heparin drip for systemic anticoagulation -patient converted to sinus rhythm by night time of 04/12/19 and off diltiazem drip -echocardiogram reveals normal to hyperdynamic LV systolic function. -patient was back to home dose metoprolol 50 mg BID by AM of 04/12/19. Cardiology service gave additional 25 mg metoprolol. Patient was offered sotalol therapy but declined -Patient's current heart rate is sinus and bradycardic -Patient should take metoprolol tartrate as increased from 50 mg twice daily home dose to 75 mg twice daily on discharge. Patient should report to primary care medical doctor if any symptoms of lightheadedness or dizziness while on increased metoprolol medications -Patient should take Eliquis 5 mg twice daily to lower stroke risk from atrial fibrillation. Patient should have repeat CBC performed by primary care doctor on follow up visit to check blood counts and platelets while on Eliquis -Patient has follow up 04/16/2019 11:10 AM Provider Chuy Figueroa DO Department [facility] -Dr. Champagne will plan outpatient exercise stress echocardiography for further risk stratification. office visit 05/06/2019 1:00 PM Provider Yaya Champagne DO Department Cardiology, [facility] (2) Left-sided chest pain: -chest discomforts resolved with control of heart rate and rhythm (3) T2DM (type 2 diabetes mellitus): Diabetes Mellitus Type 2 without complication without oil heaterman current use of insulin A1C 7.8 02/2019 -on metformin and glipizide at home -Lantus/NovoLog per protocol while in the hospital -resume outpatient metformin and glipizide as outpatient (4) HTN (hypertension): blood pressure controlled with lisinopril and metoprolol (5) HLD (hyperlipidemia): continue statin (6) Osteoarthritis: oxycodone as needed - takes 1-2x daily Pt with chronic substance agreement with PCP (7) DVT prophylaxis: -Eliquis Discharge Diagnosis Atrial fibrillation with Rapid ventricular response, anticoagulated by anticoagulation therapy, Diabetes Mellitus Type 2 without complication without oil heaterman current use of insulin Total Time Total Time Spent Total Time Spent (In Minutes): 40 minutes Total Time Includes: Examination of the Patient, Discharge Planning, Medication Reconciliation and Communication With Other Providers Discharge Plan Discharge Items Patient Disposition: Home - Self-Care Reason For Visit: AFIB WITH RVR Discharge Diagnosis: Atrial fibrillation with Rapid ventricular response, anticoagulated by anticoagulation therapy, Diabetes Mellitus Type 2 without complication without senior care current use of insulin Condition: Good Discharge Goals: Improve disease control Activity: Resume your previous activity Non-emergency contact: Primary Care Provider and Nuclear Control Room Operator Call non-emergency contact if: you have any medication questions Follow-up/Referrals: Chuy Figueroa DO [Primary Care Provider] - Diet: Carb Consistent or DM2 and Heart Healthy Addtl Provider Instructions: Discharge to home Patient's current heart rate is sinus and bradycardic as the atrial fibrillation with rapid ventricular response has resolved Patient should take metoprolol tartrate as increased from 50 mg twice daily home dose to 75 mg twice daily on discharge. Patient should report to primary care medical doctor if any symptoms of lightheadedness or dizziness while on increased metoprolol medications Patient should take Eliquis 5 mg twice daily to lower stroke risk from atrial fibrillation. Patient should have repeat CBC performed by primary care doctor on follow up visit to check blood counts and platelets while on Eliquis Patient has follow up 04/16/2019 11:10 AM Provider Chuy Figueroa DO Department [facility] Dr. Champagne will plan outpatient exercise stress echocardiography for further risk stratification. office visit 05/06/2019 1:00 PM Provider Yaya Champagne DO Department Cardiology, [facility] Prescriptions: New metoprolol tartrate 25 mg Tablet 75 mg PO BID 30 Days Qty: 180 RF: 0 Eliquis 5 mg Tablet 5 mg PO Q12H 30 Days Qty: 60 RF: 0 Continued atorvastatin 40 mg tablet 40 mg PO QAM RF: 0 acetaminophen [Tylenol] 325 mg Tablet 325 mg PO UD PRN (Reason: Pain) RF: 0 glipizide 10 mg tablet extended release 24hr 10 mg PO QAM RF: 0 aspirin [Aspirin Low Dose] 81 mg Tablet,Delayed Release (Dr/Ec) 81 mg PO QAM RF: 0 lorazepam 1 mg tablet 1 mg PO UD PRN (Reason: Anxiety) RF: 0 lisinopril 2.5 mg tablet 2.5 mg PO QAM RF: 0 hydroxyzine pamoate 25 mg capsule 25 mg PO UD PRN (Reason: Motion Sickness) RF: 0 metformin 750 mg tablet extended release 24 hr 750 mg PO BID RF: 0 oxycodone 5 mg tablet 5 mg PO BID PRN (Reason: Pain) RF: 0 Discontinued metoprolol tartrate 50 mg tablet 50 mg PO BID RF: 0 Stand-Alone Forms: [facility] Discharge Orders: Discharge Order (Routine); Ordered 04/12/19 Ordered By: Willard Walker Admission Data Admit Date/Time: 04/11/19 13:54 Attending Provider: Willard Walker Admit Provider: Willard Walker Primary Care Provider: Chuy Figueroa Other Providers: Guille Murphy ; Willard Walker Service: Telemetry
[2019-04-12] MEDS ORDERED: METOPROLOL TARTRATE 25 MG TAB PO SCH (21:00)
== END 2019-04-12 13:00 | disposition home or self-care (01) | DRG 310 ==
LOC: ED 12:11 → 2S 13:54